=== PATIENT | female | born 1930 | race Caucasian/White ===

== ENCOUNTER 2017-01-25 15:06 | Inpatient (IN) | payer MEDICARE, OTHER ==
[2017-01-25] VITALS (8 sets, daily range): BP systolic 100–126; BP diastolic 46–66
[~2017-01-25] VITALS: Ht 157.5 cm; Wt 66.2 kg
--- NOTE | 2017-01-25 15:10 | NUR ---
BIB RA FROM HOME, MOBILE X-RAY REVEALED LEFT HIP FRACTURE S/P FALL YESTERDAY. DENIES HEAD TRAUMA. PT AAOX1. PLACED ON OXYGEN, NOTED SATING AT 90% RA. NOTED FEBRILE. MD AT BS FOR EVAL. SAFETY AND COMFORT MEASURES PROVIDED. WILL MONITOR.
[2017-01-25] MEDS ORDERED: [UNRECOGNIZED DRUG - REMARK] (15:13)
[2017-01-25] MEDS ORDERED: ONDANSETRON HCL/PF 4 MG/2 ML VIAL IVP ONE (15:30)
[2017-01-25] MEDS ORDERED: MORPHINE SULFATE INJ 2 MG/ML DISP.SYRIN IV ONE (15:30)
[2017-01-25] MEDS ORDERED: MORPHINE SULFATE INJ 2 MG/ML DISP.SYRIN ONE (15:33)
[2017-01-25] MEDS ORDERED: ONDANSETRON HCL/PF 4 MG/2 ML VIAL ONE (15:33)
--- NOTE | 2017-01-25 15:34 | NUR ---
CALLED NURSING SUP. FOR MS BED
--- NOTE | 2017-01-25 15:40 | NUR ---
PT MEDICATED ORDERED.
[2017-01-25 15:58] LABS: CALCIUM, SERUM 8.8 mg/dL (8.5-10.1); POTASSIUM 4.1 mmol/L (3.5-5.1)
--- NOTE | 2017-01-25 16:00 | NUR ---
FC INITIATED. URINE SAMPLE OBTAINED, SENT.
[2017-01-25] MEDS ORDERED: CYAN10009 PO (16:02)
[2017-01-25] MEDS ORDERED: DONE10TA44 PO (16:02)
[2017-01-25] MEDS ORDERED: VIT1TABL46 PO (16:02)
[2017-01-25] MEDS ORDERED: FURO-145 PO (16:02)
[2017-01-25] MEDS ORDERED: SIMV80TA5 PO (16:02)
[2017-01-25] MEDS ORDERED: MEMA14CA PO (16:02)
[2017-01-25] MEDS ORDERED: ERGO50003 PO (16:02)
[2017-01-25] MEDS ORDERED: LEVO25TA9 PO (16:02)
[2017-01-25] MEDS ORDERED: FERR-58 PO (16:02)
[2017-01-25] MEDS ORDERED: AMIO200T2 PO (16:02)
[2017-01-25] MEDS ORDERED: ASPI81TA2 PO (16:02)
[2017-01-25] MEDS ORDERED: METO25TA6 PO (16:02)
[2017-01-25] MEDS ORDERED: OLAN10TA3 PO (16:02)
[2017-01-25] MEDS ORDERED: ISOS30TA6 PO (16:02)
[2017-01-25] MEDS ORDERED: HYDR-4075 PO (16:02)
[2017-01-25] MEDS ORDERED: DARB10SY SQ (16:04)
[2017-01-25 16:08] LABS: INR 1.07 (0.87-1.13); PROTHROMBIN TIME 11.5 SECS (9.5-12.7)
--- NOTE | 2017-01-25 16:12 | NUR ---
KIKA CULP, HIRA SERRANO SEASONAL WAREHOUSE ASSOCIATE
--- NOTE | 2017-01-25 16:12 | NUR ---
[facility] PAGED, DR.VU IRVING HANGING FLAGS DECORATOR
--- NOTE | 2017-01-25 16:18 | NUR ---
AT AND UPDATED FAMILY MEMBERS WITH POC.
[2017-01-25 16:21] LABS: APPEARANCE,URINE Clear (CLEAR); BILIRUBIN,URINE Negative (NEGATIVE); BLOOD, URINE Negative Ery/uL (NEGATIVE); COLOR,URINE Yellow (YELLOW); KETONES,URINE Negative (NEGATIVE); LEUKOCYTE ESTERASE ,URINE Negative (NEGATIVE); NITRITE, URINE Negative (NEGATIVE); PH,URINE 5.5 (5.0-8.0); PROTEIN,URINE Trace mg/dl (NEGATIVE); UGLUCOSE Negative (NEGATIVE); UROBILINOGEN,URINE 0.2 EU/dL (0.2)
[2017-01-25 16:22] LABS: ADD URINE CULTURE NO; BACTERIA,URINE Few /HPF (None Seen)
[2017-01-25 16:23] LABS: RBC,URINE 0-2 /HPF (0-2); SQUAMOUS EPITHELIAL CELL,UR Few /HPF (None Seen); WBC,URINE 0-2 /HPF (0-3)
[2017-01-25 16:30] LABS: BASOPHILS # (AUTO) 0.1 /CMM (0.0-0.2); BASOPHILS % (AUTO) 0.7 % (0.0-2.0); EOSINOPHILS # (AUTO) 0.1 /CMM (0.0-0.7); EOSINOPHILS % (AUTO) 0.6 % (0.0-6.0); LYMPHOCYTES # (AUTO) 0.9 /CMM (0.8-4.8); LYMPHOCYTES % (AUTO) 7.9 % (20.0-44.0); MEAN CORPUSCULAR HEMOGLOBIN 39 PG (26.0-33.0); MEAN CORPUSCULAR HGB CONC 33 g/dl (31.0-36.0); MEAN CORPUSCULAR VOLUME 118 fL (82-100); MONOCYTES # (AUTO) 0.6 /CMM (0.1-1.30); MONOCYTES % (AUTO) 5.4 % (2.0-12.0); NEUTROPHILS # (AUTO) 9.9 /CMM (1.8-8.9); NEUTROPHILS % (AUTO) 85.4 % (43.0-81.0); PLATELET COUNT (AUTO) 263 /CMM (150-450); RDW COEFFICIENT OF VARIATION 19.3 (11.5-15.0); WHITE BLOOD COUNT (AUTO) 11.6 K/uL (4.3-11.0)
[2017-01-25] MEDS ORDERED: HYDROCODONE/APAP 5/325MG 1 EACH TABLET PO PRN (16:30)
[2017-01-25] MEDS ORDERED: ACETAMINOPHEN 325 MG TABLET PO PRN (16:30)
[2017-01-25] MEDS ORDERED: MORPHINE SULFATE INJ 2 MG/ML DISP.SYRIN IV PRN (16:30)
[2017-01-25] MEDS ORDERED: Z GUARD REMEDY 2 OZ OINT TP PRN (16:30)
[2017-01-25] MEDS ORDERED: MAG HYDROX/AL HYDROX/SIMETH 30 ML UDC PO PRN (16:30)
[2017-01-25] MEDS ORDERED: MAGNESIUM HYDROXIDE 30 ML UDC PO PRN (16:30)
[2017-01-25] MEDS ORDERED: ONDANSETRON HCL/PF 4 MG/2 ML VIAL IVP PRN (16:30)
[2017-01-25 16:31] LABS: RED BLOOD CELL COUNT(AUTO) 1.68 MIL/uL (4.0-5.2)
[2017-01-25 16:32] LABS: HEMOGLOBIN 6.6 g/dL (11.5-14.8)
[2017-01-25 16:33] LABS: HEMATOCRIT 20 % (33-45)
[2017-01-25] MEDS ORDERED: ERGOCALCIFEROL (VITAMIN D 2) 50,000 UNIT CAPSULE PO SCH (17:00)
[2017-01-25] MEDS ORDERED: IV NS 0.9% 1,000 ML IV PRN (17:00)
[2017-01-25] MEDS ORDERED: DARBEPOETIN ALFA IN POLYSORBAT SQ SCH (17:00)
--- NOTE | 2017-01-25 17:28 | NUR ---
REPORT GIVEN TO JUANJO RIDDLE FOR MS RM [id number]
[2017-01-25 17:30] LABS: ANISOCYTOSIS 2+; BAND % (MANUAL) 15 % (0.0-5.0); EOSINOPHILS % (MANUAL) 1 % (0-4); LYMPHOCYTES % (MANUAL) 8 % (16-48); MONOCYTES % (MANUAL) 8 % (0-11.0); NEUTROPHILS % (MANUAL) 68 (42-76); PLATELET ESTIMATE ADEQUATE
--- NOTE | 2017-01-25 17:33 | NUR ---
MS RN NOTES TOOK REPORT FROM ER FOR VENKATESH ALMENDAREZ ON PATIENT. MD IRVING HAS ALREADY PLACED ADMITTING ORDERS, BUT HAS NOT ORDERED ANYTHING FOR HGB OF 6.6. CALLED [facility] TO FIND OUT ORDERS. WAITING FOR CALL BACK.
--- NOTE | 2017-01-25 17:42 | NUR ---
MS RN NOTE SPOKE TO DR IRVING ABOUT HGB OF 6.6. ORDERED 2 UNITS OF PRBC. ORDERS PLACED.
[2017-01-25] MEDS ORDERED: IV 1/2NS 1000 ML 1,000 ML IV PRN (18:00)
--- NOTE | 2017-01-25 18:00 | NUR ---
MS/SKIP TENDER NOTES RECEIVED PATIENT FROM ER, BY [facility] UNDER CARE OF DR. IRVING WITH ADMISSION DX: S/P LEFT HIP FX, HX: DEMENTIA, HTN. PATIENT IS A/O X 1,MOHAWK SPEAKING, WITHOUT SOB, DENIES PAIN, WITH O2 2L/M N/C. FAMILY AT THE BEDSIDE, WITH IV LINE LAC. ORDERS VERIFIED WITH DR. IRVING. FULL BODY ASSESSMENT DONE, CCHO DIET, CONTINENT B/B, AMBULATORY WITH ASSISTANCE. VITAL SIGNS WITHIN NORMAL PAIN, DENIES CHEST PAIN, OR ANY DISCOMFORT. ORIENTED PATIENT AND FAMILY TO THE ROOM AND CALL LIGHT SYSTEM, AND VISITING OURS. NEEDS MET IN TIMELY MANNER, WITH CALL LIGHT WITHIN EASY REACH. WILL ENDORSE TO THE CERTIFIED WELLNESS PROGRAM COORDINATOR ACCORDINGLY
--- NOTE | 2017-01-25 19:30 | NUR ---
RN OPEN NOTES RECEIVED PATIENT RESTING IN BED WITH FAMILY AT BEDSIDE. A/O X1. NO SIGNS OF DISTRESS OR DISCOMFORT. BREATHING EVEN AND UNLABORED. ON 2LPM O2 VIA NC. DENIES ANY PAIN AT THIS TIME. RG INTACT WITH CLEAR YELLOW FLUID NOTED. NO IV ACCESS PRESENT AT THIS TIME, PER RACHEL RIDDLE PATIENT JUST PULLED IV OUT. BED IN LOW LOCKED POSITION WITH SIDE RAILS X3. WILL CONTINUE TO MONITOR.
[2017-01-25] MEDS ORDERED: IV NS 0.9% 250 ML IV ONE (20:07)
[2017-01-25] MEDS: OLANZAPINE 10 MG TABLET PO SCH (20:07)
[2017-01-25] MEDS ORDERED: BLOOD IV SET 1 EA INFUS.SET MC ONE (20:08)
[2017-01-25] MEDS: FERROUS SULFATE (325 MG) 325 MG/TAB TABLET PO SCH (20:08)
[2017-01-25] MEDS: METOPROLOL TARTRATE 25 MG TABLET PO SCH (20:09)
--- NOTE | 2017-01-25 22:00 | NUR ---
RN NOTES SPOKE WITH HIRA ENRIQUE, NEW ORDERS TO OBTAIN CONSENT FOR LEFT HIP HEMIARTHROPLASTY POSSIBLY DONE TOMORROW AND NPO AFTER MN. WILL CARRYOUT ORDERS AND CONTINUE TO MONITOR.
--- NOTE | 2017-01-25 22:15 | NUR ---
RN NOTES SPOKE WITH PATIENT DAUGHTER AND GRANDDAUGHTER BITA REGARDING OBTAINING CONSENT FOR PROCEDURE TOMORROW. PER GRANDDAUGHTER THEY WOULD LIKE TO SPEAK WITH MD BEFORE SIGNING CONSENT. WOULD LIKE TO DISCUSS OTHER OPTIONS FOR SURGERY. WILL NOTIFY MD AND CONTINUE TO MONITOR.
[2017-01-25] MEDS: SIMVASTATIN 40 MG TABLET PO SCH (23:57)
[2017-01-26] VITALS (20 sets, daily range): BP systolic 92–151; BP diastolic 33–74
--- NOTE | 2017-01-26 03:32 | NUR ---
RN NOTES PATIENT SHOWING SIGNS OF PAIN: FACIAL GRIMACING, MOANING AND SHOUTING "OUCH" WHEN ATTEMPTING TO REPOSITION EVEN SLIGHTLY, SHES GUARDING HER LEFT LEG AND EXPRESSES PAIN EVEN TO SLIGHT TOUCH. ADMINISTERED MORPHINE PRN FOR PAIN ORDERED. WILL CONTINUE TO MONITOR.
[2017-01-26] MEDS: PANTOPRAZOLE 40 MG TABLET.DR PO SCH (07:30)
[2017-01-26] MEDS ORDERED: LEVOTHYROXINE SODIUM 25 MCG TABLET PO SCH (07:30)
--- NOTE | 2017-01-26 07:45 | NUR ---
RN NOTES CONSENT NOT GIVEN FOR LEFT HIP HEMIARTHROPLASTY PROCEDURE AND ANESTHESIA: SPOKE WITH GRANDDAUGHTER BITA AND FAMILY REFUSES TO GIVE CONSENT FOR PROCEDURE AND TRANSFER OF PATIENT TO OR AT THIS TIME. OR NURSE WAS PRESENT ON UNIT AND AWARE OF FAMILIES DECISION. MD AWARE. ENDORSED TO AM SHIFT.
[2017-01-26] MEDS ORDERED: BACITRACIN 50000 UNITS/VIAL ONE (07:52)
[2017-01-26] MEDS ORDERED: BUPIVACAINE 0.25% 75 MG/30 ML VIAL ONE (07:52)
[2017-01-26 07:58] LABS: BASOPHILS % (AUTO) 0.3 % (0.0-2.0); EOSINOPHILS # (AUTO) 0.1 /CMM (0.0-0.7); EOSINOPHILS % (AUTO) 0.8 % (0.0-6.0); HEMATOCRIT 30 % (33-45); HEMOGLOBIN 10.4 g/dL (11.5-14.8); LYMPHOCYTES # (AUTO) 1.3 /CMM (0.8-4.8); LYMPHOCYTES % (AUTO) 8.8 % (20.0-44.0); MEAN CORPUSCULAR HEMOGLOBIN 37 PG (26.0-33.0); MEAN CORPUSCULAR HGB CONC 35 g/dl (31.0-36.0); MEAN CORPUSCULAR VOLUME 109 fL (82-100); MONOCYTES # (AUTO) 0.9 /CMM (0.1-1.30); MONOCYTES % (AUTO) 6.2 % (2.0-12.0); NEUTROPHILS # (AUTO) 12.1 /CMM (1.8-8.9); NEUTROPHILS % (AUTO) 83.9 % (43.0-81.0); PLATELET COUNT (AUTO) 269 /CMM (150-450); RDW COEFFICIENT OF VARIATION 29.1 (11.5-15.0); RED BLOOD CELL COUNT(AUTO) 2.77 MIL/uL (4.0-5.2); WHITE BLOOD COUNT (AUTO) 14.5 K/uL (4.3-11.0)
--- NOTE | 2017-01-26 08:00 | NUR ---
RN CLOSING NOTES PATIENT RESTING IN BED. A/O X1. NO SIGNS OF DISTRESS OR DISCOMFORT. BREATHING EVEN AND UNLABORED. ON 2LPM O2 VIA NC. DENIES ANY PAIN AT THIS TIME. RG INTACT WITH CLEAR ALANNA FLUID NOTED. IV IN RAC WITH 1/2 NS INFUSING. PATENT AND INTACT, NO SIGNS OF REDNESS OR INFILTRATION. NO SIGNIFICANT CHANGES THROUGH THE NIGHT. PATIENT KEPT CLEAN DRY AND COMFORTABLE. BED IN LOW LOCKED POSITION WITH SIDE RAILS X3. ENDORSED TO AM SHIFT FOR JEN.
[2017-01-26 08:08] LABS: CALCIUM, SERUM 8.7 mg/dL (8.5-10.1); CREATININE 1.9 mg/dL (0.6-1.3); MAGNESIUM 2.3 mg/dL (1.8-2.4); PHOSPHORUS 3.9 mg/dL (2.5-4.9); POTASSIUM 4.2 mmol/L (3.5-5.1)
--- NOTE | 2017-01-26 08:15 | NUR ---
ULTRASOUND INFORMED ABOUT STAT ECOCARDIO
[2017-01-26 08:18] LABS: TROPONIN I 0.075 ng/mL (0.00-0.056)
--- NOTE | 2017-01-26 08:19 | NUR ---
MS RN INITIAL NOTE RECEIVED REPORT FROM HISTORICAL RECORDS ADMINISTRATOR RN. PT AWAKE, LYING IN BED. NPO STATUS MAINTAINED SINCE MIDNIGHT. IV RAC 20G PATENT AND INTACT. RG CATHETER DRAINING. BED IN LOW LOCKED POSITION, SIDE RAILS UP X2, CALL LIGHT WITHIN REACH. WILL CONTINUE TO MONITOR.
--- NOTE | 2017-01-26 08:45 | NUR ---
OR INFORMED THAT PT'S FAMILY IS AT BEDSIDE.
--- NOTE | 2017-01-26 08:45 | NUR ---
NURSING ATTENDANT CALLED AND STATED THAT HE WILL COME SOON TO PERFORM ECOCARDIO.
[2017-01-26 08:49] LABS: THYROID STIMULATING HORMONE 20.406 uIU/mL (0.358-3.74)
[2017-01-26 08:56] LABS: BAND % (MANUAL) 3 % (0.0-5.0); EOSINOPHILS % (MANUAL) 1 % (0-4); LYMPHOCYTES % (MANUAL) 10 % (16-48); MONOCYTES % (MANUAL) 1 % (0-11.0); NEUTROPHILS % (MANUAL) 85 (42-76)
[2017-01-26 08:57] LABS: ANISOCYTOSIS 1+; PLATELET ESTIMATE ADEQUATE
[2017-01-26] MEDS: MEMANTINE HCL 5 MG TABLET PO SCH ×2 (09:00→16:54)
[2017-01-26] MEDS: CYANOCOBALAMIN 500 MCG TABLET PO SCH (09:00)
[2017-01-26] MEDS ORDERED: hydrALAZINE HCL 10 MG TABLET PO SCH (09:00)
[2017-01-26] MEDS: hydrALAZINE HCL 10 MG TABLET PO SCH (09:00)
[2017-01-26] MEDS: ISOSORBIDE MONONITRATE (30MG) 30 MG TAB.SR.24H PO SCH (09:00)
[2017-01-26] MEDS: AMIODARONE HCL 200 MG TABLET PO SCH (09:00)
[2017-01-26] MEDS ORDERED: FUROSEMIDE 20 MG TABLET PO SCH (09:00)
[2017-01-26] MEDS: METOPROLOL TARTRATE 25 MG TABLET PO SCH ×2 (09:00→16:57)
[2017-01-26] MEDS ORDERED: Medication Not On Formulary EA (Memantine HCl (Namenda Xr) 14 MG) PO SCH (09:00)
[2017-01-26] MEDS: ASPIRIN 81 MG TAB.CHEW PO SCH (09:00)
[2017-01-26] MEDS: VIT B CMPLX 3/FA/VIT C/BIOTIN 1 TAB TABLET PO SCH (09:00)
[2017-01-26] MEDS: DONEPEZIL 5 MG TABLET PO SCH (09:00)
[2017-01-26] MEDS: FERROUS SULFATE (325 MG) 325 MG/TAB TABLET PO SCH ×2 (09:00→16:52)
--- NOTE | 2017-01-26 09:05 | NUR ---
LILI OR CALLED AND STATED THAT THEY ARE WAITING FOR ECO CARDIO RESULT, FAMILY INFORMED.
--- NOTE | 2017-01-26 09:08 | NUR ---
HEAVY EQUIPMENT OPERATOR/PAVER AT BEDSIDE PERFORMING ECO CARDIO.
--- NOTE | 2017-01-26 09:20 | NUR ---
DR. POSEY INFORMED ABOUT CARDIAC ULTRASOUND RESULT BY SUGAR CONTROLLER
--- NOTE | 2017-01-26 09:25 | NUR ---
OR NURSE LILI NOTIFIED THAT CARDIO ULTRASOUND IS DONE, SHE STATED THAT THEY WILL COME SOON TO TALK TO THE PT'S FAMILY ABOUT SURGERY.
--- NOTE | 2017-01-26 09:40 | NUR ---
OR STAFF AT BEDSIDE WITH FAMILY
[2017-01-26] MEDS: FUROSEMIDE 40 MG/4 ML VIAL IV SCH ×3 (09:52→16:52)
--- NOTE | 2017-01-26 09:53 | NUR ---
CONSENTS FOR SURGERY AND ANESTHESIA GIVEN BY GRANDDAUGHTER, YELLOW FLAT RING REMOVED FROM PT BY GRANDDAUGHTER ADRIANA AND TAKEN HOME, BELONGINGS LIST UPDATED.
[2017-01-26] MEDS ORDERED: ROCURONIUM BROMIDE 50 MG/5 ML ONE (10:12)
[2017-01-26] MEDS ORDERED: FENTANYL PF 100MCG/2ML AMPUL ONE ×2 (10:12→11:24)
--- NOTE | 2017-01-26 10:12 | NUR ---
PT. IN STABLE CONDITION , NO SOB OR SIGNS OF DISTRESS. FAMILY BY BEDSIDE. PT TAKEN TO SURGERY BY OR TEAM
--- NOTE | 2017-01-26 11:00 | NUR ---
RECEIVED CALL FROM OR NURSE STATING THAT PT WILL GO TO ICU FOR HIGHER LEVEL OF CARE.
--- NOTE | 2017-01-26 11:10 | NUR ---
REPORT GIVEN TO ICU NURSE SANTA.
[2017-01-26] MEDS ORDERED: hydrALAZINE HCL IV 20 MG VIAL ONE (11:24)
--- NOTE | 2017-01-26 11:32 | NUR ---
ALL BELONGINGS TRANSFERRED TO ICU ROOM 257
--- NOTE | 2017-01-26 12:20 | NUR ---
DIVING SUPERVISOR NOTE: RECEIVED PATIENT FROM ORS/P LEFT HIP HEMIARTHROPLASTY. PATIENT ALERT TO SELF, DENIES PAIN AT THIS TIME. ON 2 LO2 VIA NC, NO DISTRESS NOTED. RG DRAINING TO GRAVITY. RAC 20G PATENT AND INTACT. SCD ON AND WORKING. ABDUCTION PILLOW IN PLACE, PATIENT NOTED WITH TWO DRESSINGS AT LEFT HIP, CLEAN DRY AND INTACT. VITAL SIGNS STABLE. ALL SAFETY MEASURES OBSERVED. PATIENT ORIENTED TO ROOM AND UNIT. FAMILY CALLED TO BEDSIDE. ONGOING MONITORING
[2017-01-26] MEDS ORDERED: HYDROCODONE/APAP 5/325MG 1 EACH TABLET PO PRN ×2 (12:30)
[2017-01-26] MEDS ORDERED: IV SET PRIMARY PUMP SET 1 EA INFUS.SET MC ONE (13:11)
[2017-01-26] MEDS: IV LR 1000 ML 1,000 ML IV PRN (13:22)
[2017-01-26] MEDS ORDERED: ANESTHESIA TRAY IN PYXIS 1 EA TRAY MC ONE (14:16)
[2017-01-26] MEDS: HYDROMORPHONE 1 MG/1 ML DISP.SYRIN IV PRN ×2 (14:33→19:48)
[2017-01-26] MEDS: RIVAROXABAN 10 MG TABLET PO SCH (16:54)
[2017-01-26] MEDS: OLANZAPINE 10 MG TABLET PO SCH (17:00)
--- NOTE | 2017-01-26 18:49 | NUR ---
PLATING TANK OPERATOR APPRENTICE NOTE: PATIENT IN STABLE CONDITION. TURNED AND REPOSITIONED, EXTREMITIES OFFLOADED. KEPT CLEAN AND DRY. ABDUCTION PILLOW IN PLACE. SURGICAL DRESSINGS CLEAN DRY AND INTACT. SAFETY MAINTAINED. PATIENT'S FAMILY ASSISTED WITH FEEDING PATIENT AND REQUESTED PUREE TEXTURE. PATIENT ABLE TO SWALLOW MEDS IN APPLE SAUCE. LASIX GIVEN X3 PER ORDER. WILL ENDORSE FOR CONTINUITY OF CARE.
--- NOTE | 2017-01-26 19:50 | NUR ---
Received patient awake alert x 1 follows simple commands.Patient complaints of post op left hip pain and pain medication administered.Repositioned to comfort.Abduction pillow in place.Left hip dressing C/D/I.Respiration even and unlabored.With O2 2L/min NC.SPO2 100%.FC to gravity draining clear yellow urine.Patient DNR/DNI status.Continue monitoring.
[2017-01-26] MEDS: SIMVASTATIN 40 MG TABLET PO SCH (22:14)
[2017-01-27] VITALS (26 sets, daily range): BP systolic 91–146; BP diastolic 33–71
[2017-01-27] MEDS: IV LR 1000 ML 1,000 ML IV PRN (02:00)
[2017-01-27] MEDS: HYDROMORPHONE 1 MG/1 ML DISP.SYRIN IV PRN ×2 (03:21→21:48)
--- NOTE | 2017-01-27 03:41 | NUR ---
Patient complaints of left hip pain.Pain medication administered as PRN.
[2017-01-27 05:10] LABS: BASOPHILS % (AUTO) 0.3 % (0.0-2.0); HEMATOCRIT 23 % (33-45); HEMOGLOBIN 7.5 g/dL (11.5-14.8); LYMPHOCYTES % (AUTO) 8.3 % (20.0-44.0); MEAN CORPUSCULAR HEMOGLOBIN 35 PG (26.0-33.0); MEAN CORPUSCULAR HGB CONC 33 g/dl (31.0-36.0); MEAN CORPUSCULAR VOLUME 106 fL (82-100); MONOCYTES # (AUTO) 0.7 /CMM (0.1-1.30); MONOCYTES % (AUTO) 6.3 % (2.0-12.0); NEUTROPHILS # (AUTO) 9.9 /CMM (1.8-8.9); NEUTROPHILS % (AUTO) 85.1 % (43.0-81.0); PLATELET COUNT (AUTO) 212 /CMM (150-450); RDW COEFFICIENT OF VARIATION 27.9 (11.5-15.0); RED BLOOD CELL COUNT(AUTO) 2.14 MIL/uL (4.0-5.2); WHITE BLOOD COUNT (AUTO) 11.7 K/uL (4.3-11.0)
[2017-01-27 05:19] LABS: ALBUMIN 2.7 g/dL (3.4-5.0); BILIRUBIN,TOTAL 0.7 mg/dL (0.2-1.0); CALCIUM, SERUM 7.8 mg/dL (8.5-10.1); CREATININE 2.1 mg/dL (0.6-1.3); PHOSPHORUS 4.4 mg/dL (2.5-4.9); POTASSIUM 4.6 mmol/L (3.5-5.1); TOTAL PROTEIN, SERUM 5.9 g/dL (6.4-8.2)
[2017-01-27 05:20] LABS: BILIRUBIN,URINE NEGATIVE (NEGATIVE); BLOOD, URINE TRACE Ery/uL (NEGATIVE); COLOR,URINE YELLOW (YELLOW); KETONES,URINE NEGATIVE (NEGATIVE); LEUKOCYTE ESTERASE ,URINE NEGATIVE (NEGATIVE); NITRITE, URINE NEGATIVE (NEGATIVE); PH,URINE 5.5 (5.0-8.0); PROTEIN,URINE NEGATIVE (NEGATIVE); UGLUCOSE NEGATIVE (NEGATIVE); UROBILINOGEN,URINE 0.2 EU/dL (0.2)
[2017-01-27 05:22] LABS: APPEARANCE,URINE CLEAR (CLEAR)
[2017-01-27 05:23] LABS: TROPONIN I 0.047 ng/mL (0.00-0.056)
[2017-01-27 05:30] LABS: ADD URINE CULTURE NO; BACTERIA,URINE None seen /HPF (None Seen); MUCUS,URINE Rare /LPF (None Seen); RBC,URINE 0-2 /HPF (0-2); SQUAMOUS EPITHELIAL CELL,UR None Seen /HPF (None Seen); WBC,URINE NONE SEEN /HPF (0-3)
[2017-01-27 05:32] LABS: CREATININE, URINE 55.2 MG/DL (30.0-125.0); URINE TOTAL PROTEIN 11.7 mg/dL (0-11.9)
[2017-01-27 05:54] LABS: BAND % (MANUAL) 6 % (0.0-5.0); LYMPHOCYTES % (MANUAL) 6 % (16-48); MONOCYTES % (MANUAL) 10 % (0-11.0); NEUTROPHILS % (MANUAL) 78 (42-76); PLATELET ESTIMATE ADEQUATE
[2017-01-27 05:55] LABS: ANISOCYTOSIS 2+; HYPOCHROMASIA 2+
[2017-01-27 06:19] LABS: EOSINOPHIL,URINE None Seen
--- NOTE | 2017-01-27 07:15 | NUR ---
RN INITIAL NOTES RECEIVED PT ASLEEP, EASILY AROUSABLE. ON 02 AT2LPM VIA NC. NO RESPIRATORY DISTRESS NOTED. NO SOB NOTED. HOB ELEVATED. NO SIGNS OF PAIN NOTED. RAC G#[address] DRESSING ON LEFT HIP CLEAN AND DRY. HIP ABDUCTOR IN PLACE. FC IN PLACE. NO HEMATURIA NOR SEDIMENTS NOTED. FOR BT 1UNIT PRBC. PT COMFORTABLE. WILL CONTINUE TO MONITOR.
[2017-01-27] MEDS: FUROSEMIDE 100 MG/10 ML VIAL IV SCH ×3 (07:23→15:34)
--- NOTE | 2017-01-27 07:30 | NUR ---
Patient resting.VS stable.Seen by and updated of patient status.MD aware of AM lab results with orders.Report given to AM shift RN for continuity of care.
[2017-01-27] MEDS: VIT B CMPLX 3/FA/VIT C/BIOTIN 1 TAB TABLET PO SCH (08:20)
[2017-01-27] MEDS: LEVOTHYROXINE SODIUM 88 MCG TABLET PO SCH (08:20)
[2017-01-27] MEDS: PANTOPRAZOLE 40 MG TABLET.DR PO SCH (08:20)
[2017-01-27] MEDS: MEMANTINE HCL 5 MG TABLET PO SCH ×2 (08:20→17:00)
[2017-01-27] MEDS: AMIODARONE HCL 200 MG TABLET PO SCH (08:20)
[2017-01-27] MEDS: ASPIRIN 81 MG TAB.CHEW PO SCH (08:20)
[2017-01-27] MEDS: CYANOCOBALAMIN 500 MCG TABLET PO SCH (08:20)
[2017-01-27] MEDS: ISOSORBIDE MONONITRATE (30MG) 30 MG TAB.SR.24H PO SCH (08:21)
[2017-01-27] MEDS: DONEPEZIL 5 MG TABLET PO SCH (08:21)
[2017-01-27] MEDS: hydrALAZINE HCL 10 MG TABLET PO SCH (08:21)
[2017-01-27] MEDS: METOPROLOL TARTRATE 25 MG TABLET PO SCH ×2 (08:21→17:00)
[2017-01-27] MEDS: RIVAROXABAN 10 MG TABLET PO SCH (17:00)
[2017-01-27] MEDS: OLANZAPINE 10 MG TABLET PO SCH (17:00)
--- NOTE | 2017-01-27 17:30 | NUR ---
RN NOTES TRANSFERRED PT TO ROOM 102. REPORT GIVEN TO YUE RIDDLE AT BEDSIDE. NO RESPIRATORY DISTRESS NOTED. NO SOB NOTED. DENIES ANY PAIN. TRANSFERRED IN STABLE CONDITION.
--- NOTE | 2017-01-27 17:35 | NUR ---
RN NOTES PT RECEIVED FROM ICU ON BED IN ROOM 102 . PT A/0x1. MICRONESIAN SPEAKING FAMILY AT THE BEDSIDE, ON O2 2L N/C . RESPIRATION EVEN AND UNLABORED, NO DISTRESS NOTED ON TEL SR WITH BBB, L HIP DRESSING CDI, L FA IV SITE #20 CDI, SR UP x3. CALL LIGHT WITHIN EASY REACH, CONTINUE TO MONITOR PT CLOSELY
--- NOTE | 2017-01-27 19:06 | NUR ---
RN NOTES PT AT REST NO DISTRESS NOTED,
--- NOTE | 2017-01-27 20:00 | NUR ---
LIBRARY CLERK TALKING BOOKS;; RECEIVED PT ALERT, FAMILY AT BEDSIDE, . ON 02 AT 2LPM VIA NC. NO RESPIRATORY DISTRESS NOTED. NO SOB NOTED. HOB ELEVATED. NO SIGNS OF PAIN NOTED. RAC G#[address] DRESSING ON LEFT HIP CLEAN AND DRY. HIP ABDUCTOR IN PLACE. FC IN PLACE. NO HEMATURIA NOR SEDIMENTS NOTED. PT COMFORTABLE. WILL CONTINUE TO MONITOR.
[2017-01-27] MEDS: SIMVASTATIN 40 MG TABLET PO SCH (22:00)
[2017-01-28] VITALS: BP 106/31
[2017-01-28 04:00] VITALS: BP_SYST 108; BP_DIAS 32; BP_DIAS 42
--- NOTE | 2017-01-28 06:16 | NUR ---
STUNT DOUBLE; PT BEING STABLE TO WHOLE SHIFT, NO DISTRESS, SLEEPING WELL. COMPLETE BED BATH GIVEN. WILL ENDORSE CARE TO NEXT SHIFT.
[2017-01-28 06:42] LABS: ALBUMIN 2.8 g/dL (3.4-5.0); BILIRUBIN,TOTAL 0.8 mg/dL (0.2-1.0); CALCIUM, SERUM 8.2 mg/dL (8.5-10.1); CREATININE 2.4 mg/dL (0.6-1.3); MAGNESIUM 1.9 mg/dL (1.8-2.4); PHOSPHORUS 4.9 mg/dL (2.5-4.9); POTASSIUM 4.2 mmol/L (3.5-5.1); TOTAL PROTEIN, SERUM 6.3 g/dL (6.4-8.2)
[2017-01-28 06:43] LABS: BASOPHILS % (AUTO) 0.3 % (0.0-2.0); EOSINOPHILS # (AUTO) 0.1 /CMM (0.0-0.7); EOSINOPHILS % (AUTO) 1.4 % (0.0-6.0); HEMATOCRIT 26 % (33-45); HEMOGLOBIN 8.9 g/dL (11.5-14.8); LYMPHOCYTES % (AUTO) 18.5 % (20.0-44.0); MEAN CORPUSCULAR HEMOGLOBIN 37 PG (26.0-33.0); MEAN CORPUSCULAR HGB CONC 35 g/dl (31.0-36.0); MEAN CORPUSCULAR VOLUME 106 fL (82-100); MONOCYTES # (AUTO) 0.7 /CMM (0.1-1.30); MONOCYTES % (AUTO) 6.7 % (2.0-12.0); NEUTROPHILS # (AUTO) 7.7 /CMM (1.8-8.9); NEUTROPHILS % (AUTO) 73.1 % (43.0-81.0); PLATELET COUNT (AUTO) 208 /CMM (150-450); RDW COEFFICIENT OF VARIATION 29.4 (11.5-15.0); RED BLOOD CELL COUNT(AUTO) 2.44 MIL/uL (4.0-5.2); WHITE BLOOD COUNT (AUTO) 10.6 K/uL (4.3-11.0)
--- NOTE | 2017-01-28 07:15 | NUR ---
BUILDING ARCHITECTURAL DESIGNER INITIAL NOTES RECEIVED REPORT AND PT FROM PM NURSE, PT RESTING IN BED WITH NO ACUTE CHANGES, NO SOB, A&O X1-2 [place] SPEAKING, ON 2L NC SAT ABOVE 97%, ON TELE MON SR WITH BBB, RG CATH DRAINING URINE VIA GRAVITY, LT FA 20 G IV SITE INTACT, NO S.S OF INFILTRATION, ALL NEEDS MET, ALL SAFETY MEASURES INITIATED, SIDE RAILS X2, BED LOW AND LOCKED, CALL LIGHT WITHIN REACH, WILL CONTINUE TO MONITOR.
[2017-01-28 08:00] VITALS: BP 118/32
[2017-01-28] MEDS: hydrALAZINE HCL 10 MG TABLET PO SCH (08:17)
[2017-01-28] MEDS: ISOSORBIDE MONONITRATE (30MG) 30 MG TAB.SR.24H PO SCH (08:17)
[2017-01-28] MEDS: METOPROLOL TARTRATE 25 MG TABLET PO SCH ×2 (08:18→16:26)
[2017-01-28] MEDS ORDERED: IV 1/2NS 1000 ML 1,000 ML IV PRN (08:30)
[2017-01-28] MEDS: AMIODARONE HCL 200 MG TABLET PO SCH (08:47)
[2017-01-28] MEDS: ASPIRIN 81 MG TAB.CHEW PO SCH (08:47)
[2017-01-28] MEDS: LEVOTHYROXINE SODIUM 88 MCG TABLET PO SCH (08:47)
[2017-01-28] MEDS: VIT B CMPLX 3/FA/VIT C/BIOTIN 1 TAB TABLET PO SCH (08:47)
[2017-01-28] MEDS: MEMANTINE HCL 5 MG TABLET PO SCH ×2 (08:50→16:43)
[2017-01-28] MEDS: CYANOCOBALAMIN 500 MCG TABLET PO SCH (08:50)
[2017-01-28] MEDS: PANTOPRAZOLE 40 MG TABLET.DR PO SCH (08:50)
[2017-01-28] MEDS: DONEPEZIL 5 MG TABLET PO SCH (08:51)
[2017-01-28 09:29] LABS: BAND % (MANUAL) 1 % (0.0-5.0); EOSINOPHILS % (MANUAL) 1 % (0-4); LYMPHOCYTES % (MANUAL) 20 % (16-48); MONOCYTES % (MANUAL) 3 % (0-11.0); NEUTROPHILS % (MANUAL) 75 (42-76)
[2017-01-28 09:30] LABS: ANISOCYTOSIS 1+; HYPOCHROMASIA 2+; PLATELET ESTIMATE ADEQUATE
[2017-01-28] MEDS ORDERED: ERGOCALCIFEROL (VITAMIN D 2) 50,000 UNIT CAPSULE PO SCH (09:30)
[2017-01-28 10:27] LABS: VIT D, 25-HYDROXY 23.2 ng/mL (30.0-100.0)
[2017-01-28 11:17] LABS: *SPE A/G RATIO 1.2 (0.7-1.7); *SPE ALBUMIN 2.8 g/dL (2.9-4.4); *SPE ALPHA-1-GLOBULIN 0.4 g/dL (0.0-0.4); *SPE ALPHA-2-GLOBULIN 0.7 g/dL (0.4-1.0); *SPE BETA GLOBULIN 0.6 g/dL (0.7-1.3); *SPE GLOBULIN, TOTAL 2.4 g/dL (2.2-3.9); *SPE M-SPIKE Not Observed g/dL (Not Observed); *SPE PROTEIN TOTAL 5.2 g/dL (6.0-8.5); *SPEGAMMA GLOBULIN 0.7 g/dL (0.4-1.8)
[2017-01-28 13:13] LABS: PTH, INTACT 166 pg/mL (15-65)
[2017-01-28 16:00] VITALS: BP 108/45
[2017-01-28] MEDS: OLANZAPINE 10 MG TABLET PO SCH (16:43)
[2017-01-28] MEDS: RIVAROXABAN 10 MG TABLET PO SCH (16:44)
--- NOTE | 2017-01-28 19:30 | NUR ---
MS RN INITIAL NOTE RECEIVED PT SLEEPING IN BED WITH FAMILY AT BEDSIDE. A/O X1-2 SRI LANKAN SPEAKING AND CONFUSED AT TIMES. ON 2L OF O2 VIA NASAL CANNULA AND TOLERATING WELL, SATING WELL. IV SITE LFA #20 SL FLUSHING WELL, PATENT, CLEAN AND INTACT. RG CATHETER PATENT AND DRAINING WELL BY GRAVITY. BED IN LOWEST POSITION AND LOCKED. ALL SAFETY MEASURES IN PLACE. CALL LIGHT WITHIN REACH WILL CONTINUE TO MONITOR.
[2017-01-28 20:00] VITALS: BP_SYST 109; BP_SYST 110; BP_DIAS 47; BP_DIAS 56
[2017-01-28] MEDS: SIMVASTATIN 40 MG TABLET PO SCH (22:32)
[2017-01-29 04:00] VITALS: BP 124/33
--- NOTE | 2017-01-29 06:30 | NUR ---
MS RN CLOSING NOTE PT REMAINED STABLE DURING SHIFT. IV SITE INTACT. ON 2L OF O2 AND SATING WELL. CALL LIGHT WITHIN REACH AT ALL TIMES. ALL SAFETY MEASURES IN PLACE. RG CATHETER PATENT AND CLEAN. WILL ENDORSE TO NEXT SHIFT FOR JEN.
[2017-01-29] MEDS: PANTOPRAZOLE 40 MG TABLET.DR PO SCH (06:32)
[2017-01-29] MEDS: LEVOTHYROXINE SODIUM 88 MCG TABLET PO SCH (06:32)
[2017-01-29 06:33] LABS: BASOPHILS % (AUTO) 0.4 % (0.0-2.0); EOSINOPHILS # (AUTO) 0.3 /CMM (0.0-0.7); EOSINOPHILS % (AUTO) 3.6 % (0.0-6.0); HEMATOCRIT 24 % (33-45); HEMOGLOBIN 8.2 g/dL (11.5-14.8); LYMPHOCYTES # (AUTO) 1.5 /CMM (0.8-4.8); LYMPHOCYTES % (AUTO) 19.5 % (20.0-44.0); MEAN CORPUSCULAR HEMOGLOBIN 36 PG (26.0-33.0); MEAN CORPUSCULAR HGB CONC 34 g/dl (31.0-36.0); MEAN CORPUSCULAR VOLUME 106 fL (82-100); MONOCYTES # (AUTO) 0.6 /CMM (0.1-1.30); MONOCYTES % (AUTO) 7.9 % (2.0-12.0); NEUTROPHILS # (AUTO) 5.2 /CMM (1.8-8.9); NEUTROPHILS % (AUTO) 68.6 % (43.0-81.0); PLATELET COUNT (AUTO) 195 /CMM (150-450); RDW COEFFICIENT OF VARIATION 28.3 (11.5-15.0); RED BLOOD CELL COUNT(AUTO) 2.28 MIL/uL (4.0-5.2); WHITE BLOOD COUNT (AUTO) 7.6 K/uL (4.3-11.0)
--- NOTE | 2017-01-29 07:00 | NUR ---
RN NOTES RECEIVED PT ON BED , MICRONESIAN SPEAKING A/Ox1. RESPIRATION EVEN AND UNLABORED , ON O2 AT 2L N/C , NO SOB NOTED , RG CATH DRAINING URINE VIA GRAVITY, LT FA IV SITE # 20 CDI, INTACT, SR UP x3, BED ALARM ON FOR SAFETY PRECAUTION ALL NEEDS MET, BED LOCKED AND IN LOW POSITION, CALL LIGHT WITHIN REACH, WILL CONTINUE TO MONITOR PT CLOSELY AND NOTIFY MD FOR ANY SIGNIFICANT CHANGES.
[2017-01-29 07:20] LABS: ALBUMIN 2.6 g/dL (3.4-5.0); BILIRUBIN,TOTAL 0.8 mg/dL (0.2-1.0); CALCIUM, SERUM 8.6 mg/dL (8.5-10.1); MAGNESIUM 2.2 mg/dL (1.8-2.4); PHOSPHORUS 4.2 mg/dL (2.5-4.9); POTASSIUM 4.7 mmol/L (3.5-5.1); TOTAL PROTEIN, SERUM 6.2 g/dL (6.4-8.2)
[2017-01-29 08:00] VITALS: BP 115/35
[2017-01-29] MEDS: METOPROLOL TARTRATE 25 MG TABLET PO SCH ×2 (08:31→17:08)
[2017-01-29] MEDS: CYANOCOBALAMIN 500 MCG TABLET PO SCH (08:31)
[2017-01-29] MEDS: ISOSORBIDE MONONITRATE (30MG) 30 MG TAB.SR.24H PO SCH (08:32)
[2017-01-29] MEDS: VIT B CMPLX 3/FA/VIT C/BIOTIN 1 TAB TABLET PO SCH (08:32)
[2017-01-29] MEDS: hydrALAZINE HCL 10 MG TABLET PO SCH (08:32)
[2017-01-29] MEDS: MEMANTINE HCL 5 MG TABLET PO SCH ×2 (08:32→17:06)
[2017-01-29] MEDS: AMIODARONE HCL 200 MG TABLET PO SCH (08:32)
[2017-01-29] MEDS: ASPIRIN 81 MG TAB.CHEW PO SCH (08:32)
[2017-01-29] MEDS: DONEPEZIL 5 MG TABLET PO SCH (08:33)
[2017-01-29 08:40] LABS: BAND % (MANUAL) 1 % (0.0-5.0); BASOPHILS % (MANUAL) 0 % (0.0-2.0); EOSINOPHILS % (MANUAL) 5 % (0-4); LYMPHOCYTES % (MANUAL) 14 % (16-48); MONOCYTES % (MANUAL) 8 % (0-11.0); NEUTROPHILS % (MANUAL) 72 (42-76)
[2017-01-29 08:41] LABS: ANISOCYTOSIS 2+; PLATELET ESTIMATE ADEQUATE
--- NOTE | 2017-01-29 12:00 | NUR ---
RN NOTES PT STABLE , SUPPORTIVE FAMILY AT THE BEDSIDE, NO DISTRESS NOTED ,
[2017-01-29 16:00] VITALS: BP 98/48
[2017-01-29] MEDS: OLANZAPINE 10 MG TABLET PO SCH (17:06)
[2017-01-29] MEDS: RIVAROXABAN 10 MG TABLET PO SCH (17:07)
--- NOTE | 2017-01-29 18:00 | NUR ---
RN NOTES PT AT REST , VSS STABLE, MEDICATED PER MD ORDER. LEFT FA IV SITE CDI, DRESSING TO LEFT HIP CLEAN AND DRY. NO SIGNIFICANT CHANGES NOTED ON THIS SHIFT .
--- NOTE | 2017-01-29 19:30 | NUR ---
RN INITIAL NOTE RECEIVED PT IN NO ACUTE DISTRESS IN BED. PT IS A/O X 2 AND TRISTANIAN SPEAKING. PT IS ON O2 VIA NC @ 2LPM AND TOLERATING WELL WITH O2 SAT @ 97%. PT HAS F/C THAT IS CLEAN DRY INTACT AND PATENT WITH CLEAR YELLOW URINE DRAINING. PT DENIES ANY SOB, DIFFICULTY BREATHING OR PAIN AT THIS TIME. PT HAS LFA 20G THAT IS CLEAN DRY INTACT AND PATENT WITH SALINE FLUSH. BED IN LOW LOCK POSITION WITH RAILS UP X 2, CALL LIGHT WITHIN REACH AND ALL SAFETY MEASURES ENSURED AND CARRIED OUT. WILL CONTINUE TO MONITOR PT.
[2017-01-29 20:00] VITALS: BP 111/33
[2017-01-29] MEDS: SIMVASTATIN 40 MG TABLET PO SCH (22:57)
[2017-01-30] MEDS: ZOLPIDEM TARTRATE 5 MG TABLET PO PRN ×2 (00:28→22:23)
--- NOTE | 2017-01-30 03:49 | NUR ---
RN NOTE TRANSFERRED CARE TO LETICIA RIDDLE FOR CONTINUITY OF CARE.
[2017-01-30 04:00] VITALS: BP 123/41
[2017-01-30 05:56] LABS: BASOPHILS # (AUTO) 0.1 /CMM (0.0-0.2); BASOPHILS % (AUTO) 0.9 % (0.0-2.0); EOSINOPHILS # (AUTO) 0.3 /CMM (0.0-0.7); EOSINOPHILS % (AUTO) 4.7 % (0.0-6.0); HEMATOCRIT 25 % (33-45); HEMOGLOBIN 8.4 g/dL (11.5-14.8); LYMPHOCYTES # (AUTO) 1.5 /CMM (0.8-4.8); LYMPHOCYTES % (AUTO) 20.6 % (20.0-44.0); MEAN CORPUSCULAR HEMOGLOBIN 35 PG (26.0-33.0); MEAN CORPUSCULAR HGB CONC 34 g/dl (31.0-36.0); MEAN CORPUSCULAR VOLUME 104 fL (82-100); MONOCYTES # (AUTO) 0.7 /CMM (0.1-1.30); MONOCYTES % (AUTO) 9.2 % (2.0-12.0); NEUTROPHILS # (AUTO) 4.7 /CMM (1.8-8.9); NEUTROPHILS % (AUTO) 64.6 % (43.0-81.0); PLATELET COUNT (AUTO) 203 /CMM (150-450); RDW COEFFICIENT OF VARIATION 26.6 (11.5-15.0); WHITE BLOOD COUNT (AUTO) 7.3 K/uL (4.3-11.0)
[2017-01-30 06:07] LABS: CALCIUM, SERUM 8.3 mg/dL (8.5-10.1); CREATININE 1.8 mg/dL (0.6-1.3); POTASSIUM 4.2 mmol/L (3.5-5.1)
--- NOTE | 2017-01-30 07:30 | NUR ---
RN NOTES RECEIVED PATIENT IN BED ASLEEP WITH BREATHING NORMAL, EVEN AND UNLABORED. NO SOB NOTED. ON 2L O2 VIA NC, SATURATING WELL. NO ACUTE DISTRESS NOTED. NO PAIN, NO DISCOMFORT NOTED. IV IS PATENT AND INTACT, NO INFILTRATION NOTED. BOWEL SOUNDS PRESENT. PULSES PRESENT. SAFETY MEASURE OBSERVED. ALL NEEDS ATTENDED. CALL LIGHT WITH IN REACH. WILL CONT TO MONITOR.
[2017-01-30 08:00] VITALS: BP_SYST 145; BP_SYST 96; BP_DIAS 48; BP_DIAS 65
[2017-01-30] MEDS: LEVOTHYROXINE SODIUM 88 MCG TABLET PO SCH (08:17)
[2017-01-30] MEDS: DONEPEZIL 5 MG TABLET PO SCH (08:17)
[2017-01-30] MEDS: PANTOPRAZOLE 40 MG TABLET.DR PO SCH (08:17)
[2017-01-30] MEDS: VIT B CMPLX 3/FA/VIT C/BIOTIN 1 TAB TABLET PO SCH (08:17)
[2017-01-30] MEDS: CYANOCOBALAMIN 500 MCG TABLET PO SCH (08:18)
[2017-01-30] MEDS: MEMANTINE HCL 5 MG TABLET PO SCH ×2 (08:18→17:46)
[2017-01-30] MEDS: AMIODARONE HCL 200 MG TABLET PO SCH (08:18)
[2017-01-30] MEDS: ISOSORBIDE MONONITRATE (30MG) 30 MG TAB.SR.24H PO SCH (08:18)
[2017-01-30] MEDS: ASPIRIN 81 MG TAB.CHEW PO SCH (08:18)
[2017-01-30] MEDS: METOPROLOL TARTRATE 25 MG TABLET PO SCH ×2 (08:19→17:49)
[2017-01-30] MEDS: hydrALAZINE HCL 10 MG TABLET PO SCH (08:19)
[2017-01-30 16:00] VITALS: BP_SYST 99; BP_DIAS 31; BP_DIAS 51
[2017-01-30] MEDS: OLANZAPINE 10 MG TABLET PO SCH (17:46)
[2017-01-30] MEDS: RIVAROXABAN 10 MG TABLET PO SCH (17:54)
--- NOTE | 2017-01-30 19:40 | NUR ---
RN NOTES PT AWAKE ON BED WITH FAMILY/VISITOR AT BEDSIDE. AOX2 ABLE TO VERBAKLIZED FEELINGS CHINESE LANGUAGE. WITH O2 2LPM VIA NC SATING 98% IV SITE ON LFA G 20 INTACT AND PATENT WELL RIGHT ANTECUBITAL G 20. ABDUCTOR PILLOW KEPT IN PLACED PT HAS EPISODE OF REMOVING IT. BENEFITS EXPLAINED INTERPRET BY FAMILY. PT AGREED BUT UNABLE TO VERBALIZED UNDERSTANDING. WITH F/C DRAINED WITH YELLOW COLOR URINE. KEPT PT CLEAN AND COMFORTABLE IN BED. BED LOCKED AND SECURED. BED ALARM KEPT ON. SAFETY AND COMFORT PROVIDED.
--- NOTE | 2017-01-30 19:53 | NUR ---
RN NOTES PATIENT ENDORSED TO NEXT SHIFT IN STABLE CONDITION WITH BREATHING NORMAL, EVEN AND UNLABORED. NO SOB NOTED. NO ACUTE DISTRESS NOTED. KEPT CLEAN, DRY AND COMFORTABLE. ALL NEEDS ATTENDED. CALL LIGHT WITH IN REACH. SAFETY MEASURE OBSERVED. WILL CONT TO MONITOR.
[2017-01-30 20:00] VITALS: BP 112/49
[2017-01-30] MEDS: SIMVASTATIN 40 MG TABLET PO SCH (21:50)
[2017-01-31 04:00] VITALS: BP 107/49
--- NOTE | 2017-01-31 06:21 | NUR ---
RN NOTES PT ASLEEP WELL ON BED WITH O2 2LPM VIA NC TOLERATED WELL. SATING 97%. AFEBRILE. VS REMAINED IN A LOW DIASTOLIC NO SIGNIFICANT JEN NOTED. ALL DUE MEDICINE ADMINISTERED WITHOUT ASPIRATION SHOWS. KEPT PT CLEAN AND DRY. DRESSING CHANGE PHOTO TAKEN FOR ANY SKIN ISSUE. WILL ENDORSED CONTINUITY OF CARE TO AM NURSE.
[2017-01-31 08:00] VITALS: BP 126/34
[2017-01-31] MEDS: VIT B CMPLX 3/FA/VIT C/BIOTIN 1 TAB TABLET PO SCH (08:47)
[2017-01-31] MEDS: DONEPEZIL 5 MG TABLET PO SCH (08:48)
[2017-01-31 08:50] VITALS: BP 126/40
[2017-01-31] MEDS: PANTOPRAZOLE 40 MG TABLET.DR PO SCH (08:50)
[2017-01-31] MEDS: ASPIRIN 81 MG TAB.CHEW PO SCH (08:50)
[2017-01-31] MEDS: MEMANTINE HCL 5 MG TABLET PO SCH (08:50)
[2017-01-31] MEDS: CYANOCOBALAMIN 500 MCG TABLET PO SCH (08:50)
[2017-01-31] MEDS: LEVOTHYROXINE SODIUM 88 MCG TABLET PO SCH (08:51)
[2017-01-31] MEDS: METOPROLOL TARTRATE 25 MG TABLET PO SCH (09:00)
[2017-01-31] MEDS: AMIODARONE HCL 200 MG TABLET PO SCH (09:00)
[2017-01-31] MEDS: hydrALAZINE HCL 10 MG TABLET PO SCH (09:00)
[2017-01-31] MEDS: ISOSORBIDE MONONITRATE (30MG) 30 MG TAB.SR.24H PO SCH (09:00)
[2017-01-31 12:11] LABS: CALCITRIOL VIT D,1, 25 DIHYDRO 45.4 pg/mL (19.9-79.3)
--- NOTE | 2017-01-31 12:49 | NUR ---
01/31/2017 1000 pt family at bedside, very concerned about where she will be discharged to. area field manager paged. Pt resting quietly, O2 on, abductor pillow between legs, scds on, higuera catheter care done. PT took all of am meds
--- NOTE | 2017-01-31 15:53 | NUR ---
pt dressing changed, cleaned up, do be d/c at 2186
[2017-01-31 16:00] VITALS: BP 121/41
[2017-01-31 16:30] VITALS: BP 124/41
--- NOTE | 2017-01-31 17:00 | NUR ---
Discharge report called to nursing facility, gave report to press shop supervisor. Pt IV taken out, paper work handed to ems.
== END 2017-01-31 17:04 | DRG 469 ==
LOC: ER 15:08 → MED 17:06 → ICU 01-26 13:00 → TELE1 01-27 17:34 → MEDSG1 01-28 08:32
PROVIDERS: ADMIT Family Medicine; ATTEND Family Medicine
PROC: 30233N1 Transfusion of Nonautologous Red Blood Cells into Peripheral Vein, Percutaneous Approach (ICD-10-PCS; 2017-01-25)
PROC: 0SRS0JZ Replacement of Left Hip Joint, Femoral Surface with Synthetic Substitute, Open Approach (ICD-10-PCS; principal; 2017-01-26 08:05)
DX: S72.142A Displaced intertrochanteric fracture of left femur, initial encounter for closed fracture (principal); I50.33 Acute on chronic diastolic (congestive) heart failure; I13.0 Hypertensive heart and chronic kidney disease with heart failure and stage 1 through stage 4 chronic kidney disease, or unspecified chronic kidney disease; E87.0 Hyperosmolality and hypernatremia; N17.9 Acute kidney failure, unspecified; N25.81 Secondary hyperparathyroidism of renal origin; W19.XXXA Unspecified fall, initial encounter; Y92.9 Unspecified place or not applicable; N18.9 Chronic kidney disease, unspecified; F03.90 Unspecified dementia, unspecified severity, without behavioral disturbance, psychotic disturbance, mood disturbance, and anxiety; F29 Unspecified psychosis not due to a substance or known physiological condition; I25.10 Atherosclerotic heart disease of native coronary artery without angina pectoris; Z95.1 Presence of aortocoronary bypass graft; D64.9 Anemia, unspecified; E78.5 Hyperlipidemia, unspecified; D72.829 Elevated white blood cell count, unspecified; E03.9 Hypothyroidism, unspecified; Z66 Do not resuscitate
CPT/HCPCS: 36415; 71010-TC; 73510-TC; 80048-TC; 80053-TC; 80061-TC; 81000-TC; 82306; 82550-TC; 82570-TC; 82652; 82728-TC; 83540-TC; 83735-TC; 83970; 84100-TC; 84155; 84155-TC; 84165; 84300-TC; 84439-TC; 84443-TC; 84484-TC; 85025-TC; 85730-TC; 86850-TC; 86921-TC; 87040-TC; 87081-TC; 88305-TC; 88311-TC; 93307-TC; 97001-TC; 97110-TC; 97112-TC; 97116-TC; 97530-TC; A4217; A4606; A6209; A6402; A6403; C1713; J0360; J0690; J1100; J1170; J1940; J2270; J2405; J2710; J3010; J3490; J7050; J7120; P9016-BL; Z7610